=== PATIENT | male | born 1985 | race Two or more races ===

== ENCOUNTER 2017-07-19 11:41 | Emergency (ER) | payer OTHER ==
[~2017-07-19] VITALS: Ht 175.3 cm; Wt 77.1 kg
[2017-07-19 12:18] VITALS: BP 123/78
[2017-07-19] MEDS ORDERED: HYDROcodone-ACET 10/325MG TAB PO ONE (13:00)
== END 2017-07-19 14:15 ==
LOC: ER 11:41
DX: S01.01XA Laceration without foreign body of scalp, initial encounter (principal); Y04.2XXA Assault by strike against or bumped into by another person, initial encounter; Y93.89 Activity, other specified; Y92.89 Other specified places as the place of occurrence of the external cause; Y99.8 Other external cause status
CPT/HCPCS: 12004; 70450